=== PATIENT | male | born 1975 | race Caucasian/White ===

== ENCOUNTER 2020-05-28 19:37 | Inpatient (IN) | payer MEDICARE ==
[~2020-05-28] VITALS: Ht 203.2 cm; Wt 113.4 kg
[2020-05-28] MEDS ORDERED: PIPER-TAZ 3.375 GM 50 ML IV SCH (20:00)
[2020-05-28] MEDS ORDERED: ONDANSETRON HCL INJ 2MG/ML 2ML 2 MG/ML VIAL IV STA (20:54)
[2020-05-28] MEDS ORDERED: MORPHINE SULFATE INJ 4 MG/ML INJ 1ML IV STA (20:54)
[2020-05-28] MEDS ORDERED: MORPHINE SULFATE INJ 4 MG/ML INJ 1ML ONE (21:06)
[2020-05-28 21:15] LABS: BASOPHILS # (AUTO) 0.1 (0.0-0.1); BASOPHILS % 0.8 % (0.0-1.0); EOSINOPHILS # (AUTO) 0.4 (0.0-0.4); EOSINOPHILS % 4.6 % (0.0-6.0); HEMOGLOBIN 15.3 g/dL (14.0-18.0); LYMPHOCYTES # (AUTO) 1.3 (1.0-3.2); MEAN CORPUSCULAR HEMOGLOBIN 31.2 pg (28-32); MEAN CORPUSCULAR VOLUME 91.8 fL (81-99); MONOCYTES # (AUTO) 0.8 (0.2-0.8); MONOCYTES % 8.3 % (4.4-11.3); NEUTROPHILS # (AUTO) 6.6 (2.1-6.9); NEUTROPHILS % 71.7 % (38.7-80.0); PLATELET COUNT 176 x10e3/uL (140-360); RED CELL DISTRIBUTION WIDTH 13.4 % (11.7-14.4)
[2020-05-28 21:31] LABS: INR 0.93
[2020-05-28 21:33] LABS: ALANINE AMINOTRANSFERASE 40 IU/L (0-55); ALBUMIN 4.3 g/dL (3.5-5.0); ALBUMIN/GLOBULIN RATIO 1.4 (0.8-2.0); ALKALINE PHOSPHATASE 54 IU/L (40-150); ANION GAP 15.3 mmol/L (8-16); BLOOD UREA NITROGEN 17 mg/dL (7-26); BUN/CREATININE RATIO 18 (6-25); CALCIUM 9.1 mg/dL (8.4-10.2); CARBON DIOXIDE 19 mmol/L (22-29); CHLORIDE 107 mmol/L (98-107); CREATININE, SERUM 0.97 mg/dL (0.72-1.25); EST GLOMERULAR FILTRATION RATE > 60 ML/MIN (60-); GLUCOSE 99 mg/dL (74-118); POTASSIUM 4.3 mmol/L (3.5-5.1); SODIUM 137 mmol/L (136-145)
[2020-05-28] MEDS ORDERED: ENOXAPARIN SOD INJ 120 MG/0.8 ML SYR SC STA (21:46)
[2020-05-28] MEDS ORDERED: ONDANSETRON HCL INJ 2MG/ML 2ML 2 MG/ML VIAL IV PRN (22:00)
[2020-05-28] MEDS ORDERED: MORPHINE SULFATE INJ 4 MG/ML INJ 1ML IV PRN (22:00)
[2020-05-28] MEDS ORDERED: ASPIRIN 81 MG CHEW TAB PO ONE (22:00)
[2020-05-28] MEDS ORDERED: IOPAMIDOL 370 MG/ML 200 ML INFUS..BTL INJ ONE (22:04)
[2020-05-28 22:14] LABS: CREATINE KINASE 123 IU/L (30-200)
[2020-05-28] MEDS: SODIUM CHLORIDE 0.9% 1000ML 1,000 ML IV SCH (22:24)
[2020-05-28 23:00] VITALS: BP 142/89
[2020-05-29] VITALS (7 sets, daily range): BP systolic 87–145; BP diastolic 49–97
[2020-05-29] MEDS ORDERED: DEXTROSE 50% SYRINGE 50 ML IV PRN (00:15)
[2020-05-29] MEDS ORDERED: DIPHENHYDRAMINE HCL 25 MG CAP PO PRN (00:15)
[2020-05-29] MEDS ORDERED: LIDOCAINE 4% PATCH TP PRN (00:15)
[2020-05-29] MEDS ORDERED: BENZONATATE 100 MG CAP PO PRN (00:15)
[2020-05-29] MEDS ORDERED: SIMETHICONE 80 MG CHEW PO PRN (00:15)
[2020-05-29] MEDS ORDERED: ALBUTEROL/IPRATROPIUM 3 ML NEB NEB PRN ×2 (00:15→11:15)
[2020-05-29] MEDS ORDERED: MELATONIN 5 MG TABLET PO PRN (00:15)
[2020-05-29] MEDS ORDERED: HYDRALAZINE HCL 20 MG/ML VIAL IV PRN (00:15)
[2020-05-29] MEDS ORDERED: POTASSIUM CHLORIDE 20 MEQ TAB CR PO PRN (00:15)
[2020-05-29] MEDS ORDERED: ACETAMINOPHEN 325 MG TAB PO PRN (00:15)
[2020-05-29] MEDS ORDERED: DOCUSATE SODIUM 100 MG CAP PO PRN (00:15)
[2020-05-29] MEDS ORDERED: POLYETHYLENE GLYCOL 3350 17 GM PACK PO PRN (00:15)
[2020-05-29] MEDS ORDERED: SIMVASTATIN40 MG PO (00:26)
[2020-05-29] MEDS ORDERED: COQ-10100 MG PO (00:26)
[2020-05-29] MEDS ORDERED: ASPIRIN CHEW81 MG PO (00:27)
[2020-05-29] MEDS ORDERED: TRAZODONE HCL50 MG PO (00:28)
[2020-05-29] MEDS ORDERED: ZOLOFT100 MG PO (00:29)
[2020-05-29] MEDS: ONDANSETRON HCL INJ 2MG/ML 2ML 2 MG/ML VIAL IV PRN ×2 (01:00→05:00)
[2020-05-29] MEDS: MORPHINE SULFATE INJ 2 MG/ML SYR IV PRN ×6 (01:00→21:11)
[2020-05-29 05:08] LABS: BASOPHILS % 0.5 % (0.0-1.0); EOSINOPHILS # (AUTO) 0.5 (0.0-0.4); EOSINOPHILS % 5.4 % (0.0-6.0); HEMATOCRIT 44.9 % (38.2-49.6); HEMOGLOBIN 14.8 g/dL (14.0-18.0); LYMPHOCYTES # (AUTO) 1.1 (1.0-3.2); LYMPHOCYTES % 13.5 % (18.0-39.1); MEAN CORPUSCULAR HEMOGLOBIN 30.8 pg (28-32); MEAN CORPUSCULAR VOLUME 93.3 fL (81-99); MONOCYTES # (AUTO) 0.8 (0.2-0.8); MONOCYTES % 9.2 % (4.4-11.3); NEUTROPHILS # (AUTO) 5.9 (2.1-6.9); NEUTROPHILS % 70.9 % (38.7-80.0); PLATELET COUNT 147 x10e3/uL (140-360); RED BLOOD COUNT 4.81 x10e6/uL (4.3-5.7); RED CELL DISTRIBUTION WIDTH 13.5 % (11.7-14.4)
[2020-05-29 05:33] LABS: ALANINE AMINOTRANSFERASE 33 IU/L (0-55); ALBUMIN 3.9 g/dL (3.5-5.0); ALBUMIN/GLOBULIN RATIO 1.3 (0.8-2.0); ALKALINE PHOSPHATASE 47 IU/L (40-150); BLOOD UREA NITROGEN 15 mg/dL (7-26); BUN/CREATININE RATIO 16 (6-25); CARBON DIOXIDE 22 mmol/L (22-29); CHLORIDE 108 mmol/L (98-107); CREATININE, SERUM 0.93 mg/dL (0.72-1.25); EST GLOMERULAR FILTRATION RATE > 60 ML/MIN (60-); GLUCOSE 96 mg/dL (74-118); SODIUM 140 mmol/L (136-145)
[2020-05-29 06:03] LABS: CREATINE KINASE MB 1.4 ng/mL (0-5.0)
[2020-05-29 06:22] LABS: MAGNESIUM 1.9 MG/DL (1.3-2.1); PHOSPHORUS 3.1 MG/DL (2.3-4.7)
[2020-05-29 06:42] LABS: THYROID STIMULATING HORMONE 2.86 uIU/mL (0.350-4.940)
[2020-05-29] MEDS: SODIUM CHLORIDE 0.9% 1000ML 1,000 ML IV SCH (09:01)
[2020-05-29] MEDS: PANTOPRAZOLE SOD 40 MG TABEC PO SCH (09:13)
[2020-05-29] MEDS ORDERED: PROAIR HFA INH8.5 GM INH (11:02)
[2020-05-29] MEDS ORDERED: ENOXAPARIN SOD INJ 40 MG/0.4 ML SYR SC SCH (11:15)
[2020-05-29] MEDS ORDERED: FUROSEMIDE INJ 10 MG/ML 4 ML VIAL IV ONE ×2 (12:00→20:45)
[2020-05-29] MEDS: ENOXAPARIN SOD INJ 120 MG/0.8 ML SYR SC SCH ×2 (12:47→21:01)
[2020-05-29 14:15] LABS: CREATINE KINASE 132 IU/L (30-200)
[2020-05-29] MEDS: CEFEPIME 1GM/NS 0.9% 50 ML 50 ML IV SCH (15:30)
[2020-05-29] MEDS: VANCOMYCIN 1GM/NS 250 ML 250 ML IV SCH (16:30)
[2020-05-29] MEDS ORDERED: ALBUTEROL SULFATE HFA 8GM INHALATION AEROSOL INH PRN (20:45)
[2020-05-29] MEDS: TRAZODONE HCL 50 MG TAB PO SCH (21:01)
[2020-05-29] MEDS: SERTRALINE HCL 100 MG TAB PO SCH (21:01)
[2020-05-29] MEDS: ASPIRIN 81 MG CHEW TAB PO SCH (21:01)
[2020-05-29] MEDS: SIMVASTATIN 40 MG TAB PO SCH (21:01)
[2020-05-29] MEDS ORDERED: IOPAMIDOL 370 MG/ML 200 ML INFUS..BTL INJ ONE (22:20)
[2020-05-30] VITALS (9 sets, daily range): BP systolic 112–154; BP diastolic 57–103
[2020-05-30] MEDS: CEFEPIME 1GM/NS 0.9% 50 ML 50 ML IV SCH ×2 (01:49→15:00)
[2020-05-30] MEDS: VANCOMYCIN 1GM/NS 250 ML 250 ML IV SCH ×2 (03:22→16:00)
[2020-05-30 05:05] LABS: BASOPHILS # (AUTO) 0.1 (0.0-0.1); BASOPHILS % 0.7 % (0.0-1.0); EOSINOPHILS # (AUTO) 0.3 (0.0-0.4); HEMATOCRIT 38.1 % (38.2-49.6); HEMOGLOBIN 12.6 g/dL (14.0-18.0); LYMPHOCYTES # (AUTO) 1.9 (1.0-3.2); MEAN CORPUSCULAR HGB CONC 33.1 g/dL (31-35); MEAN CORPUSCULAR VOLUME 93.6 fL (81-99); MONOCYTES # (AUTO) 0.6 (0.2-0.8); MONOCYTES % 8.3 % (4.4-11.3); NEUTROPHILS # (AUTO) 4.4 (2.1-6.9); PLATELET COUNT 150 x10e3/uL (140-360); RED BLOOD COUNT 4.07 x10e6/uL (4.3-5.7); RED CELL DISTRIBUTION WIDTH 13.4 % (11.7-14.4)
[2020-05-30 05:26] LABS: ANION GAP 15.1 mmol/L (8-16); BLOOD UREA NITROGEN 14 mg/dL (7-26); BUN/CREATININE RATIO 16 (6-25); CARBON DIOXIDE 24 mmol/L (22-29); CHLORIDE 105 mmol/L (98-107); EST GLOMERULAR FILTRATION RATE > 60 ML/MIN (60-); GLUCOSE 97 mg/dL (74-118); POTASSIUM 3.1 mmol/L (3.5-5.1); SODIUM 141 mmol/L (136-145)
[2020-05-30 08:01] LABS: EOSINOPHILS % (MANUAL) 6 % (0-7); LYMPHOCYTES % (MANUAL) 15 % (19-48); MONOCYTES % (MANUAL) 6 % (3.4-9.0); NEUTROPHILS % (MANUAL) 71 % (40-74); PLATELET ESTIMATE ADEQUATE; PLATELET MORPHOLOGY COMMENT NORMAL; RBC MORPHOLOGY COMMENT NORMAL
[2020-05-30] MEDS: PANTOPRAZOLE SOD 40 MG TABEC PO SCH (08:38)
[2020-05-30] MEDS: MORPHINE SULFATE INJ 2 MG/ML SYR IV PRN ×4 (08:39→21:30)
[2020-05-30] MEDS ORDERED: POTASSIUM CHLORIDE 20 MEQ TAB CR PO ONE (10:15)
[2020-05-30] MEDS: APIXABAN 5 MG TABLET PO SCH ×2 (10:33→15:50)
[2020-05-30] MEDS: SIMVASTATIN 40 MG TAB PO SCH (20:28)
[2020-05-30] MEDS: TRAZODONE HCL 50 MG TAB PO SCH (20:28)
[2020-05-30] MEDS: SERTRALINE HCL 100 MG TAB PO SCH (20:28)
[2020-05-30] MEDS: ASPIRIN 81 MG CHEW TAB PO SCH (20:28)
[2020-05-30] MEDS ORDERED: SODIUM CHLORIDE 0.9% 250ML 250 ML ONE (23:52)
[2020-05-30] MEDS: CLINDAMYCIN 600MG / 50ML 50 ML IV SCH (23:55)
[2020-05-31] VITALS (10 sets, daily range): BP systolic 111–152; BP diastolic 75–95
[2020-05-31] MEDS: MORPHINE SULFATE INJ 2 MG/ML SYR IV PRN ×5 (02:00→19:58)
[2020-05-31] MEDS: CLINDAMYCIN 600MG / 50ML 50 ML IV SCH ×4 (06:01→23:36)
[2020-05-31] MEDS: PANTOPRAZOLE SOD 40 MG TABEC PO SCH (07:30)
[2020-05-31] MEDS ORDERED: ONDANSETRON HCL 4 MG ORAL DISINTEGRATING TAB PO PRN (08:15)
[2020-05-31] MEDS: APIXABAN 5 MG TABLET PO SCH ×2 (09:50→18:17)
[2020-05-31] MEDS: HYDROCODONE/APAP 5MG-325MG TAB PO PRN ×2 (12:19→18:18)
[2020-05-31] MEDS: SIMVASTATIN 40 MG TAB PO SCH (19:58)
[2020-05-31] MEDS: TRAZODONE HCL 50 MG TAB PO SCH (19:58)
[2020-05-31] MEDS: ASPIRIN 81 MG CHEW TAB PO SCH (19:58)
[2020-05-31] MEDS: SERTRALINE HCL 100 MG TAB PO SCH (19:58)
[2020-06-01] MEDS: HYDROCODONE/APAP 5MG-325MG TAB PO PRN ×2 (03:00→08:44)
[2020-06-01 04:03] VITALS: BP 121/89
[2020-06-01] MEDS: CLINDAMYCIN 600MG / 50ML 50 ML IV SCH ×2 (05:16→12:00)
[2020-06-01 05:28] LABS: BASOPHILS # (AUTO) 0.1 (0.0-0.1); EOSINOPHILS # (AUTO) 0.4 (0.0-0.4); EOSINOPHILS % 7.2 % (0.0-6.0); HEMATOCRIT 41.8 % (38.2-49.6); LYMPHOCYTES # (AUTO) 1.2 (1.0-3.2); LYMPHOCYTES % 25.4 % (18.0-39.1); MEAN CORPUSCULAR HEMOGLOBIN 31.4 pg (28-32); MEAN CORPUSCULAR HGB CONC 33.5 g/dL (31-35); MEAN CORPUSCULAR VOLUME 93.7 fL (81-99); MONOCYTES # (AUTO) 0.6 (0.2-0.8); NEUTROPHILS # (AUTO) 2.6 (2.1-6.9); NEUTROPHILS % 53.8 % (38.7-80.0); PLATELET COUNT 153 x10e3/uL (140-360); RED BLOOD COUNT 4.46 x10e6/uL (4.3-5.7); RED CELL DISTRIBUTION WIDTH 13.2 % (11.7-14.4); RETICULOCYTE % 1.8 % (0.8-2.2)
[2020-06-01 06:07] LABS: FERRITIN 242.74 ng/mL (21.81-274.66)
[2020-06-01 08:00] VITALS: BP 133/91
[2020-06-01 08:08] VITALS: BP 133/91
[2020-06-01 08:09] VITALS: BP 121/89
[2020-06-01] MEDS: PANTOPRAZOLE SOD 40 MG TABEC PO SCH (08:43)
[2020-06-01] MEDS: APIXABAN 5 MG TABLET PO SCH (08:43)
[2020-06-01] MEDS ORDERED: METOPROLOL SUCCINATE 25 MG TAB XL PO SCH (09:00)
[2020-06-01] MEDS ORDERED: LOSARTAN POTASSIUM 25 MG TAB PO SCH (09:00)
[2020-06-01] MEDS: MORPHINE SULFATE INJ 2 MG/ML SYR IV PRN (10:22)
[2020-06-01 12:09] VITALS: BP_SYST 125; BP_SYST 133; BP_DIAS 76; BP_DIAS 91
== END 2020-06-01 14:25 | disposition home or self-care (01) | DRG 299 ==
LOC: ER 19:47 → ERHOLD 21:56 → MED/SURG2 22:41 → MED/SURG 05-30 20:55
PROVIDERS: ADMIT Internal Medicine; ATTEND Internal Medicine
DX: I82.4Y9 Acute embolism and thrombosis of unspecified deep veins of unspecified proximal lower extremity (principal); I26.99 Other pulmonary embolism without acute cor pulmonale; L03.119 Cellulitis of unspecified part of limb; I50.22 Chronic systolic (congestive) heart failure; T87.44 Infection of amputation stump, left lower extremity; I11.0 Hypertensive heart disease with heart failure; Z89.202 Acquired absence of left upper limb, unspecified level; Z89.512 Acquired absence of left leg below knee; Z20.822 Contact with and (suspected) exposure to COVID-19; F41.9 Anxiety disorder, unspecified; F32.9 Major depressive disorder, single episode, unspecified; I25.10 Atherosclerotic heart disease of native coronary artery without angina pectoris; Z86.73 Personal history of transient ischemic attack (TIA), and cerebral infarction without residual deficits; I25.2 Old myocardial infarction; T87.89 Other complications of amputation stump
CPT/HCPCS: 36415; 71045; 71260; 80048; 80053; 82550; 82553; 82607; 82728; 82746; 82948; 83540; 83735; 84100; 84443; 84466; 84484; 85025; 85045; 85610; 93005; 93306; 93926; 93971; 94640; 97139; 99284; J0692; J1650; J1940; J2270; J2405; J2543; J3370; J7030; J7050; Q9967; U0002